=== PATIENT | female | born 1960 | race Caucasian/White ===

== ENCOUNTER → 2016-08-03 | Outpatient (CLI) | payer OTHER ==
--- NOTE | 2016-08-03 12:22 | US ---
Sonography Limited to the Right Upper Quadrant of the Abdomen Clinical History: 55-year-old female with elevated liver function tests, hyperlipidemia, and hypergl ycemia. The patient reportedly had a negative result after a 2009 liver biopsy. ICD-10 Diagnostic Codes: R74.8, R73.09, and E78.5. Technique: A curvilinear 5 MHz transducer was used to sonographically evaluate the right upper quadra nt of the abdomen. Color Doppler was also used. Comparison Study: None available. The patient's previous biopsy was at an outside facility. Findings: The pancreatic contour is normal. The abdominal aorta is normal in size, with some minimal atherosclerotic echogenic calcification, and it tapers normally. The visualized IVC is normal in óscar frances. The liver measures 15.1 cm along the right midaxillary line; however, there is mild diffuse incr eased echogenicity compared to adjacent right renal cortex, consistent with fatty infiltration (steat osis). There is some midline bowel gas which obscures portions of the anatomy. In the right hepatic l obe, there is a 6 x 7 x 9 mm anechoic cyst. The hepatic contour appears normal. The gallbladder is lo cated superiorly in the abdomen (right behind a rib) limiting assessment. A junctional fold is seen. There is no convincing evidence of cholelithiasis. There is no gallbladder wall thickening, perichole cystic fluid, or sonographic Gao sign. There is no intrahepatic or extrahepatic bile duct dilatati on. The common bile duct measures 5.1 mm. There is no ascites or right pleural effusion. The right ki dney is normal, measuring 10.4 x 4.7 x 4.1 cm. The right renal cortex is 1.4 cm. Impression: 1. Moderate hepatic steatosis (fatty infiltration of the liver). There is no bile duct dilatation. 2. There is no sonographic abnormality identified within the gallbladder. 3. There is a benign-appearing right hepatic lobe subcentimeter cyst.
== END ==
LOC: CIMAGING 08:34
PROVIDERS: ATTEND Family Medicine
DX: K76.0 Fatty (change of) liver, not elsewhere classified (principal); K76.89 Other specified diseases of liver
CPT/HCPCS: 76705-PO

== ENCOUNTER → 2017-07-19 | Outpatient (CLI) | payer OTHER | LOC: BRMIMAGING 14:24 | PROVIDERS: ATTEND Family Medicine | DX: Z13.820 Encounter for screening for osteoporosis (principal); M85.80 Other specified disorders of bone density and structure, unspecified site; Z78.0 Asymptomatic menopausal state ==

== ENCOUNTER → 2017-10-07 | Outpatient (CLI) | payer OTHER | LOC: CIMAGING 18:06 | PROVIDERS: ATTEND Family Medicine | DX: M25.572 Pain in left ankle and joints of left foot (principal) | CPT/HCPCS: 73600-PO ==